=== PATIENT | female | born 1970 | race Caucasian/White ===

== ENCOUNTER 2018-05-29 11:22 | Emergency (ER) | payer OTHER ==
[2018-05-29 11:53] VITALS: BP 182/86
--- NOTE | 2018-05-29 12:16 | UC ---
Eye Complaint HPI - HPI Summary HPI Summary: bilateral eye redness x 3 days tearing / clear discharge, no eye pain , no change in vision , no photophobia rash bilateral axilla, + itchy ? new deodorant - History of Current Complaint Chief Complaint: UCSkin Stated Complaint: BILATERAL EYE CONCERN, SKIN CONCERN Time Seen by Provider: 05/29/18 12:00 Hx Obtained From: Patient ?: No Onset/Duration: Gradual Onset, Lasting Days - 3, Still Present Timing: Constant Severity Initially: Moderate Severity Currently: Moderate Pain Intensity: 0 Location of Injury: Conjunctiva - bilateral Aggravating Factor(s): Blinking Alleviating Factor(s): Nothing Associated Signs And Symptoms: Positive: Drainage (Clear). Negative: Photophobia, Drainage (Purulent), Vision Impairment Bilateral, Vision Impairment Right, Vision Impairment Left, Swelling - Allergies/Home Medications Allergies/Adverse Reactions: Allergies Allergy/AdvReac Type Severity Reaction Status Date / Time No Known Allergies Allergy Verified 05/29/18 11:49 PMH/Surg Hx/FS Hx/Imm Hx Cardiovascular History: Hypertension Cancer History: Cervical Cancer - Surgical History Surgical History: None - Family History Known Family History: Positive: Hypertension - Social History Alcohol Use: Occasionally Substance Use Type: None Smoking Status (MU): Never Smoked Tobacco Review of Systems All Other Systems Reviewed And Are Negative: Yes Constitutional: Positive: Negative Skin: Positive: Rash Eyes: Positive: Drainage, Eye Redness ENT: Positive: Negative Respiratory: Positive: Negative Cardiovascular: Positive: Negative Is Patient Immunocompromised?: No Physical Exam Triage Information Reviewed: Yes Appearance: Well-Appearing, No Pain Distress, Well-Nourished Vital Signs: Initial Vital Signs Temp 96.8 F 05/29/18 11:47 Pulse 71 05/29/18 11:47 Resp 16 05/29/18 11:47 BP 182/86 05/29/18 11:47 Pulse Ox 99 05/29/18 11:47 Vital Signs Reviewed: Yes Eye Exam: Normal Eyes: Positive: Conjunctiva Inflamed - bilateral, Discharge - clear discharge ENT Exam: Normal ENT: Positive: Normal ENT inspection, Hearing grossly normal, Pharynx normal Neck exam: Normal Neck: Positive: Supple, Nontender, No Lymphadenopathy Respiratory: Positive: Chest non-tender, Lungs clear, Normal breath sounds Cardiovascular: Positive: RRR, No Murmur Musculoskeletal Exam: Normal Skin Exam: Normal Eye Complaint Course/Dx - Differential Dx/Diagnosis Provider Diagnosis: Conjunctivitis, Contact dermatitis, Hypertension Discharge - Sign-Out/Discharge Documenting (check all that apply): Patient Departure All imaging exams completed and their final reports reviewed: No Studies - Discharge Plan Condition: Stable Disposition: HOME Prescriptions: predniSONE [Prednisone 20 MG TAB] 20 mg PO BID WITH MEALS #10 tablet Tobramycin/Dexamethasone [Tobradex] 1 drop OPHTHALMIC QID #1 bottle Triamcinolone 0.1% CREAM (NF) [Kenalog 0.1% Cream (NF)] 1 applic TOPICAL BID # 60 gm Patient Education Materials: Contact Dermatitis (DC), Hypertension (ED), Conjunctivitis (ED) Forms: *Work Release Referrals: No Primary Care Phys,NOPCP [Primary Care Provider] - If Needed - Billing Disposition and Condition Condition: STABLE Disposition: Home
== END 2018-05-29 12:14 | disposition home or self-care (01) ==
LOC: UCCORT 11:22
DX: H10.9 Unspecified conjunctivitis (principal); L25.9 Unspecified contact dermatitis, unspecified cause; I10 Essential (primary) hypertension
CPT/HCPCS: 99202; G0463

== ENCOUNTER → 2018-10-20 09:04 | Emergency (ER) | payer SELFPAY | END | disposition home or self-care (01) | LOC: OHCORT 09:04 → OH 09:04 | DX: Z00.00 Encounter for general adult medical examination without abnormal findings (principal) ==